=== PATIENT | male | born 1990 | race Caucasian/White ===

== ENCOUNTER 2018-11-04 19:35 | Emergency (ER) | payer MEDICAID, SELFPAY ==
[2018-11-04 19:37] VITALS: BP 117/74; PULSE 85; RESP 18; TEMP 36.6; O2SAT 100; BMI 25.4
--- NOTE | 2018-11-04 19:56 | CM.ED ---
Social Work Note Discussed with physician who believes pt will require psychiatric hospitalization and will consult crisis. LYN Benedict, LIZZETTE
[2018-11-04] MEDS: Ziprasidone IM 20 MG/ML VIAL IM (20:11)
[2018-11-04 20:13] LABS: Absolute Lymphocyte Count 2.66 X10^3/ul (0.83-4.51); Absolute Neutrophil Count 3.7 X10^3/uL (2.0-7.7); Basophil# 0.02 X10^3/uL; Basophil% 0.3 % (0-1); Eosinophil# 0.26 X10^3/uL; Eosinophils% 3.5 % (0-5); Hemoglobin 13.8 g/dl (13.0-16.5); Lymphocyte # 2.66 X10^3/ul (4.0); Lymphocyte % 35.9 % (19-41); Mean Corp Hgb Conc 32.1 g/gl (32-36); Mean Corpuscular Hgb 29.7 pg (27.0-32.0); Mean Corpuscular Volume 92.7 fL (80-94); Mean Platelet Vol. 10.4 fl (6.2-12.0); Monocyte# 0.76 X10^3/uL; Monocyte% 10.3 % (0-10); Neutrophil # 3.69 X10^3/uL (2.7-7.7); Neutrophil % 49.9 % (47-70); Platelet Count 281 K/mm3 (150-450); RBC Distribution Width CV 13.2 % (11.6-14.6); RBC Distribution Width SD 44.4 fl (35.1-43.9); Red Blood Count 4.64 M/mm3 (4.6-6.2); White Blood Count 7.4 K/mm3 (4.4-11.0)
[2018-11-04 20:14] LABS: POSITIVE COUNT NO; POSITIVE DIFFERENTIAL NO; POSITIVE MORPHOLOGY NO
[2018-11-04 20:21] LABS: Amphetamine Urine VISTA POSITIVE (<1000 ng/mL); Barbiturate Urine VISTA NEGATIVE (< 200 ng/mL); Benzodiazepine Urine VISTA NEGATIVE (< 200 ng/mL); Cocaine Urine VISTA NEGATIVE (< 300 ng/mL); Ecstacy Urine VISTA NEGATIVE (< 500 ng/mL); Methadone Urine VISTA NEGATIVE (< 300 ng/mL); PCP Urine VISTA NEGATIVE (< 25 ng/mL); THC Urine VISTA NEGATIVE (< 50 ng/mL); Vista UDS pH Range 6
[2018-11-04 20:27] LABS: Anion Gap 6 (5-15); BUN 11 mg/dL (7-18); BUN/Creat Ratio 14.1 RATIO (10-20); Calcium,Total 8.3 mg/dL (8.5-10.1); Chloride 110 mmol/L (98-107); Creatinine, Serum 0.78 mg/dL (0.70-1.30); EST Glomerular Filtration Rate 127 mL/min (>60); Est Glom Filt Rate - Afr Amer 154 mL/min (>60); Estimated Creatinine Clearance 124.84 ml/min; Glucose 65 mg/dL (74-106); Potassium 3.5 mmol/L (3.5-5.1); Sodium Level 142 mmol/L (136-145)
--- NOTE | 2018-11-04 20:51 | ED.VISSUMM ---
- ER Visit Summary Date of Service: 11/04/18 Chief Complaint: Hallucinations, suicidal ideation History of Present Illness: The patient is a 28 M presents to the emergency department by police. Apparently, the patient has been having hallucinations. He thinks that his mother is trying to sell him to someone. He apparently had a knife to his throat was saying that he was in a kill himself. He states he cannot sleep because he feels like that is when they are going to come and take him. He does have a history of PTSD and depression. He denies any prior psychiatric hospitalization. He denies any diagnosis of bipolar disorder or schizophrenia. He denies any drug or alcohol use. Physical Examination: Vital signs reviewed General: Well-nourished, well-developed Head: Normocephalic, atraumatic Eyes: Pupils equal and reactive, extraocular muscles intact Neck, supple, no lymphadenopathy Heart: Regular rate and rhythm Respiratory: No distress, clear bilaterally Abdomen: Soft, nontender, nondistended, no peritoneal signs Back: Nontender Extremities: Nontender, no edema, no cords Skin: Normal color no rash Neuro: Alert and oriented, no focal or lateralizing deficits Test Results: [] Emergency Department Course and Treatment: The patient is obviously internally stimulated. He was given IM Geodon. Screening labs are obtained. Labs are unremarkable. His tox was positive for amphetamines. I was able to get some of the records from the crisis center. The patient was recently diagnosed with schizophrenia. He is now actively paranoid. The patient will be seen and evaluated by crisis. Treatment Plan: [] Disposition: Pending Impression: 1. Hallucinations 2. Suicidal ideation This note was generated with [employer] software. It may contain incorrect words, spelling, and punctuation that were not noted in review of the chart prior to signing ED Disposition - Plan for ED Patient: Referrals: Care Physician,No Primary [Primary Care Provider] -
--- NOTE | 2018-11-04 21:01 | ED.RN ---
CALLED CRISIS TO SEE THIS PT, PATRICIA PERALES IS TECHNICAL HEALTHCARE CONSULTANT
--- NOTE | 2018-11-04 21:56 | ED.RN ---
CALLED [facility] TO CHECK STATUS OF AN ARRIVAL, PER THE ANSWERING SERVICE, PATRICIA IS AWARE AND THEY DON'T KNOW WHERE HE IS AT THIS TIME
--- NOTE | 2018-11-04 22:22 | ED.RN ---
[facility]IS[facility] ON SITE, REPORT GIVEN TO PATRICIA
[2018-11-04 22:54] VITALS: BP 117/78; PULSE 81; RESP 16; O2SAT 100
[2018-11-05 01:24] VITALS: BP 121/69; PULSE 77; RESP 18; TEMP 36.6; O2SAT 99
[2018-11-05 02:07] VITALS: RESP 13
--- NOTE | 2018-11-05 02:26 | ED.RN ---
PATIENT PENDING ACCEPTANCE AT [facility] AT THIS TIME
[2018-11-05 03:08] VITALS: RESP 14
[2018-11-05 05:14] VITALS: BP 108/61; PULSE 69; RESP 16; O2SAT 98
--- NOTE | 2018-11-05 05:18 | ED.RN ---
Patients mother called and was requesting update when patient is being transferred and transfer status [phone]
[2018-11-05 07:24] VITALS: RESP 14
[2018-11-05 09:01] VITALS: BP 124/85; PULSE 82; RESP 14; O2SAT 99
--- NOTE | 2018-11-05 09:01 | ED.VISSUMM ---
- ER Visit Summary Date of Service: 11/05/18 Chief Complaint: [] History of Present Illness: The patient is a 28 M [] Physical Examination: [] Test Results: [] Emergency Department Course and Treatment: [] Treatment Plan: [] Disposition: [] Impression: [] This note was generated with [employer] software. It may contain incorrect words, spelling, and punctuation that were not noted in review of the chart prior to signing ED Disposition - Plan for ED Patient: Disposition: Home or Assisted Living Instructions: ED Depression Referrals: Care Physician,No Primary [Primary Care Provider] - Additional Instructions: Please contact crisis center for follow-up appointment.
--- NOTE | 2018-11-05 09:05 | ED.DCSUM_ITS ---
- ER Visit Summary Date of Service: 11/05/18 Chief Complaint: [] History of Present Illness: The patient is a 28 M [] Physical Examination: [] Test Results: [] Emergency Department Course and Treatment: [] Treatment Plan: [] Disposition: [] Impression: [] This note was generated with [employer] software. It may contain incorrect words, spelling, and punctuation that were not noted in review of the chart prior to signing ED Disposition - Plan for ED Patient: Disposition: Home or Assisted Living Instructions: ED Depression Referrals: Care Physician,No Primary [Primary Care Provider] - Additional Instructions: Please contact crisis center for follow-up appointment.
== END 2018-11-05 09:58 | disposition home or self-care (01) ==
PROVIDERS: Emergency Provider Emergency Medicine
DX: F29 Unspecified psychosis not due to a substance or known physiological condition (principal); R44.3 Hallucinations, unspecified; R45.851 Suicidal ideations; F43.10 Post-traumatic stress disorder, unspecified; F32.9 Major depressive disorder, single episode, unspecified; Z72.0 Tobacco use
CPT/HCPCS: 80048; 80307; 80320; 85025; 96372; 99284; G0480; J3486

== ENCOUNTER 2019-06-11 20:56 | Emergency (ER) | payer MEDICAID, SELFPAY ==
[2019-06-11 20:57] VITALS: BP 91/56; PULSE 109; RESP 16; TEMP 36.6; O2SAT 98; BMI 21.6
--- NOTE | 2019-06-11 21:16 | ED.VISSUMM ---
- ER Visit Summary Date of Service: 06/11/19 Chief Complaint: Rash History of Present Illness: The patient is a 29 M with no primary care physician. He reports that he woke up with a rash 4 days ago. He initially thought that it were despite seeing my crotch area. He was worried that he might have crabs or lice. So he has not shaved his head and his pubic hair. He then his hair black. Reports the following this he developed a rash to his forehead. He has not sat in a hot tub recently. He is not sexually active. Physical Examination: Vitals: Stable. Afebrile. General: Well-nourished and well-developed. Head: Normocephalic atraumatic. Neck: Supple, no lymphadenopathy. No JVD. Nontender. Cardiovascular: Regular rate and rhythm. No murmurs. Respiratory: No respiratory distress. Clear to auscultation bilaterally. Abdominal: Soft, nontender, nondistended, normal bowel sounds. No guarding, rebound, or peritoneal signs. Back: Nontender. Extremities: Nontender, no edema. Skin: No interdigital lesions or rash to his arms to suggest scabies. He has multiple 1 to 2 mm macular papular lesions to the proximal thighs medially bilaterally. Some of these do have pustules. Is consistent with folliculitis. To his hairline on his forehead he has multiple 1 to 2 mm maculopapular lesions without pustules consistent with a contact dermatitis. There are no vesicles. Neurologic: Alert and oriented ?3. Cranial nerves II through XII are intact. Normal strength and sensation. Psych: Normal affect. Emergency Department Course and Treatment: Patient was given a dose of Keflex p.o. and Kenalog IM. He is resting comfortably. Treatment Plan: Patient will be discharged with Keflex. Instructed to follow-up the [facility] in 2 days for a repeat examination. Return to the emergency department for any worsening symptoms. Disposition: To home in improved and stable condition. Impression: 1. Folliculitis. 2. Contact dermatitis. This note was generated with [employer] software. It may contain incorrect words, spelling, and punctuation that were not noted in review of the chart prior to signing ED Disposition - Plan for ED Patient: Disposition: Home or Assisted Living Instructions: Contact Dermatitis, Folliculitis Prescriptions: Cephalexin [Keflex] 500 mg PO Q6 #28 cap Prescription Printed Referrals: Barbie Swanson [NON-STAFF] - 2 Days for wound check
[2019-06-11] MEDS: Cephalexin 250 MG Capsule 500 MG PO (21:42)
[2019-06-11] MEDS: Triamcinolone Acetonide 40 MG/ML Vial 80 MG IM (21:43)
== END 2019-06-11 21:45 | disposition home or self-care (01) ==
PROVIDERS: Emergency Provider Emergency Medicine
DX: L73.9 Follicular disorder, unspecified (principal); L25.9 Unspecified contact dermatitis, unspecified cause; H92.01 Otalgia, right ear; R30.0 Dysuria; F17.200 Nicotine dependence, unspecified, uncomplicated
CPT/HCPCS: 96372; 99284

== ENCOUNTER 2019-08-23 01:03 | Emergency (ER) | payer MEDICAID, SELFPAY ==
[2019-08-23 01:05] VITALS: BP 125/76; PULSE 89; RESP 18; TEMP 36.6; O2SAT 100; BMI 23.4
--- NOTE | 2019-08-23 02:07 | ED.DCSUM_ITS ---
History of Present Illness Chief Complaint: Dental Informant: Patient Onset: - - several years Context: Gradual Onset Timing: Continuous Quality: sore Location: right mandibular molars Current Severity: Moderate Maximum Severity: Moderate Worsened by: eating Relieved by: NSAIDs - when he takes them Associated Symptoms: - - no fever, jaw/facial swelling, discharge, bleeding Narrative: Today, 1 of his right mandibular molars had a couple pieces come off of it. He states the pain is been there for years and really is no different. He was supposed to follow-up with an oral surgeon for eval for wisdom teeth extraction but did not because I was scared. Denies any fevers, swelling, discharge, or other systemic symptoms. Past Medical History - Allergies and Home Meds Allergies/Adverse Reactions: Allergies amoxicillin [Amoxicillin] Allergy (Verified 08/23/19 01:04) Hives Penicillins Allergy (Verified 08/23/19 01:04) Hives Primary Care Physician: Care Physician,No Primary [Primary Care Provider] - Past Medical History: None Smoking Status: Current every day smoker Drugs: None Review of Systems General: Denies: Chills, Fever, Sweats ENT: Reports: - - dental pain. Denies: Bilateral ear pain, Rhinorrhea, Sore throat Respiratory: Denies: Dyspnea Gastrointestinal: Denies: Nausea, Vomiting Skin: Denies: Rash, Abscess Neurological: Denies: Headache, Weakness, Numbness Physical Exam Vital Signs/Narrative: Vital Signs Temp Pulse Resp BP Pulse Ox 08/23/19 01:05 97.8 F 89 18 125/76 H 100 Inital Vital Signs reviewed: Yes General: Well nourished, Well developed Head: Normocephalic, Atraumatic ENT: Moist mucous membranes, No rhinorrhea Mouth/Throat: Normal inspection lips/gums, Normal oral mucosa, No focal abscess, Normal posterior oropharynx, No sublingual edema, Focal dental decay - teeth #30, 32, Tenderness on tooth percussion - #30,32. Negative for: Dental abscess, Dentral fracture, Focal gum swelling, Gingivitis, Trismus Neck: Supple, No lymphadenopathy, Nontender Skin: Normal color, No rash, No Trauma Neurological: Alert, Oriented x3, Cranial nerves II-XII grossly intact, Normal Strength, Normal Sensation, Normal Gait Psychological: Normal affect, Normal Mood Diagnostic/Tx/Re-eval - Medical Decision Making Patient appears to have DKA into the dentin. I do not see any bleeding or central major decay. The majority of the tooth is intact. I offered temporary filling but he states he has it at home and declines right now. He states he is concerned this will develop into an abscess since that has happened before, and is allergic to penicillins. He mainly is wanting antibiotics and a referral to the oral surgeon that he was supposed to follow-up with. I gave him information and a prescription for clindamycin and advised him to either eat yogurt or take a probiotic to prevent antibiotic associated diarrhea and use [id number] analgesics as needed. He is comfortable with this overall plan. ED Disposition - Plan for ED Patient: Disposition: Home or Assisted Living Diagnosis: Dental decay Instructions: Dental Cavity Prescriptions: Clindamycin [Cleocin] 300 mg PO 4X/DAY #80 cap Transmission Status: Pending to [id number] Referrals: Carlos Alberto Gillette DDS [STAFF PHYSICIAN] - As soon as possible (or dentist) Additional Instructions: See attached dental resource list if you need a regular dentist.
[2019-08-23] MEDS: Clindamycin HCl 150 MG Capsule 300 MG PO (02:16)
== END 2019-08-23 02:17 | disposition home or self-care (01) ==
PROVIDERS: Emergency Provider Emergency Medicine
DX: K02.9 Dental caries, unspecified (principal); F17.200 Nicotine dependence, unspecified, uncomplicated
CPT/HCPCS: 99283

== ENCOUNTER 2021-08-30 18:53 | Emergency (ER) | payer MEDICAID, SELFPAY ==
[2021-08-30 18:54] VITALS: BP 125/71; PULSE 87; RESP 16; TEMP 36.2; O2SAT 98; BMI 23.3
--- NOTE | 2021-08-30 21:47 | ED.VIS.DENTA ---
HPI History of Present Illness Chief Complaint: Dental Informant: patient Onset/Context/Timing Onset: Month(s) (3) Context: Gradual Onset Timing: Continuous Quality: Stabbing Location: Left lower molar Narrative Narrative: Patient presents with left lower dental pain that has been getting worse over the past 3 months. Patient states it is stabbing. Patient states he has been on antibiotics in the past which have helped. Patient states he has been taking Aleve which has helped. Patient states it is over the left lower molar area. Patient admits to some subjective fevers at home. Patient also admits to some swelling around the tooth. Patient also admits to hot and cold sensitivity. Patient denies any nausea or vomiting. PFSH PFSH Medical History no medical history no medical history Home Medications clindamycin HCl 300 mg PO 4X/DAY #80 cap 08/23/19 [Rx Last Taken Unknown] azithromycin 250 mg PO DAILY #4 tablet 08/30/21 [Rx Last Taken Unknown] Allergy/AdvReac Type Severity Reaction Status Date / Time amoxicillin [Amoxicillin] Allergy Hives Verified 08/30/21 18:55 Penicillins Allergy Hives Verified 08/30/21 18:55 Surgical History no surgical history no surgical history Social History Smoking Status: Current every day smoker ROS ROS ED Constitutional Constitutional ED: Reports fever(s) and subjective; Denies chills Eyes Eyes: Reports blurry vision; Denies change in vision ENT ENT ED: Denies rhinorrhea or sore throat Cardiovascular Cardiovascular: Denies chest pain or palpitations Respiratory/Chest Respiratory/Chest: Reports cough; Denies dyspnea Gastrointestinal Gastrointestinal: Denies nausea or vomiting Genitourinary Genitourinary ED: Denies dysuria or hematuria Musculoskeletal Musculoskeletal: Reports neck pain; Denies back pain Integumentary Denies abscess or rash Neurologic Neurologic: Denies headache(s) or weakness Allergic/Immunologic Allergic/Immunologic ED: Denies mouth swelling or urticaria EXAM Physical Exam Const Vital Signs: 08/30/21 18:54 Temperature 97.1 F L Temperature Source Temporal Pulse Rate 87 Respiratory Rate 16 Blood Pressure 125/71 H Blood Pressure Mean 89 Pulse Ox 98 Oxygen Delivery Method Room Air Positive well nourished and well developed General Appearance ED: well developed HEENT HEENT Narrative: There is a large dental carry noted over the left lower third molar. There is some surrounding gingival edema. There is no active discharge or drainage. There is no evidence of any abscess. There is no sublingual edema. There is no evidence of Ciro's angina. Oral mucosa is pink and moist. Oropharynx is clear. Airway is patent. Mouth ED: Yes oral and palatal mucosa abnormal Mouth: oral and palatal mucosa abnormal Teeth and Gingiva: caries Throat: posterior oropharynx normal Neck supple and no JVD Resp normal respiratory effort and clear to auscultation bilaterally Cardio regular rate and regular rhythm GI normal to inspection, nondistended, normoactive bowel sounds and non-tender Palpation: soft Neuro oriented x3, CN's II-XII intact bilaterally, moves all extremities, no focal motor deficits and no sensory deficits noted Sensorium / Orientation: alert Psych mental status grossly normal MDM MDM MDM Narrative Medical decision making narrative: Patient is allergic to penicillins. Patient states that clindamycin upsets his stomach. Patient was given his first dose of Zithromax here. Patient was given a prescription for Zithromax. Patient was instructed to follow-up with his dentist in 2 to 3 days. Patient was instructed to continue Aleve as needed for pain. Patient was instructed return if worse in any way. Patient understood and was agreeable with the plan. All questions were answered. Discharge Plan Triage Chief Complaint: Dental ED Provider: Den Nava Dx/Rx/DC Orders Clinical Impression: Infected dental caries Instructions: ED Dental Cavity Prescriptions: New azithromycin [azithromycin] 250 MG tablet 250 mg PO DAILY Qty: 4 RF: 0 No Action clindamycin HCl 150 MG capsule 300 mg PO 4X/DAY Qty: 80 RF: 0 Primary Care Provider: Care Physician,No Primary Referrals: Care Physician,No Primary [Primary Care Provider] - Dentist,Your [STAFF PHYSICIAN] - 3-5 Days Disposition Disposition: Home, Self Care
== END 2021-08-30 22:06 | disposition home or self-care (01) ==
PROVIDERS: Emergency Provider Emergency Medicine
DX: K04.7 Periapical abscess without sinus (principal); K02.9 Dental caries, unspecified; F17.200 Nicotine dependence, unspecified, uncomplicated
CPT/HCPCS: 99281